=== PATIENT | female | born 1975 | race Hispanic/Latino ===

== ENCOUNTER 2021-07-28 00:21 | Emergency (ER) | payer OTHER ==
[2021-07-28] MEDS ORDERED: CHARCOAL/SORBITOL 50 GM/240 ML SUSP ONE (00:29)
[2021-07-28] MEDS ORDERED: PANTOPRAZOLE 40 MG/VIAL IVP ONE (00:30)
[2021-07-28 00:41] LABS: BASOPHILS % (AUTO) 0.9 % (0.0-5.0); HEMATOCRIT 41.7 % (36-48); LYMPHOCYTES % (AUTO) 38.9 % (21.0-51.0); MEAN CORPUSCULAR HEMOGLOBIN 34.1 pg (27.0-33.0); MEAN CORPUSCULAR HGB CONC 34.8 g/dL (32.0-36.0); MEAN CORPUSCULAR VOLUME 98.1 fL (79-99); MONOCYTES % (AUTO) 8.2 % (3.0-13.0); NEUTROPHILS % (AUTO) 48.6 % (40.0-77.0); PLATELET COUNT (AUTO) 340 K/uL (130-400); RED BLOOD CELL COUNT(AUTO) 4.25 MIL/uL (4.00-5.50); RED CELL DISTRIBUTION WIDTH 12.1 % (11.0-15.5); WHITE BLOOD COUNT (AUTO) 5.7 K/uL (4.8-10.8)
[2021-07-28 00:52] LABS: CREATININE 0.9 mg/dL (0.5-1.5)
[2021-07-28 00:56] LABS: ALBUMIN 3.4 g/dL (3.5-5.0); BILIRUBIN,TOTAL 0.2 mg/dL (0.2-1.0)
[2021-07-28 04:30] LABS: APPEARANCE,URINE Clear (CLEAR); COLOR,URINE Yellow (YELLOW); GLUCOSE, URINE (UA) Negative (NEGATIVE); KETONES,URINE Negative (NEGATIVE); LEUKOCYTE ESTERASE ,URINE Negative (NEGATIVE); NITRATE,URINE Negative (NEGATIVE); OCCULT BLOOD,URINE Trace (NEGATIVE); PH,URINE 5.5 (5.0-8.0); PROTEIN,URINE Negative (NEGATIVE); UROBILINOGEN,URINE 0.2 mg/dL (0.2-1.0)
[2021-07-28 04:34] LABS: HCG,QUAL RESULT NEGATIVE (NEGATIVE)
[2021-07-28 04:35] LABS: SALICYLATE 3.3 mg/dL (2.8-20.0)
[2021-07-28 04:36] LABS: ACETAMINOPHEN < 1 mcg/mL (10-30)
[2021-07-28 04:37] LABS: ALCOHOL, BLOOD 222 mg/dL (0-10)
[2021-07-28 05:00] LABS: BACTERIA,URINE None Seen /HPF (None Seen); RBC,URINE 0-1 /HPF (0-1); SQUAMOUS EPITHELIAL CELL,UR None Seen /HPF (0-2); WBC,URINE None Seen /HPF (0-1)
[2021-07-28] MEDS ORDERED: 0.9%NACL 1000ML 1,000 ML IV ONE ×2 (05:30→06:00)
[2021-07-28 05:41] LABS: AMPHET/METH SCREEN,URINE NEGATIVE (NEGATIVE); BARBITURATE SCREEN, URINE NEGATIVE (NEGATIVE); BENZODIAZEPINES SCREEN,URINE NEGATIVE (NEGATIVE); CANNABINOID SCREEN,URINE NEGATIVE (NEGATIVE); COCAINE SCREEN,URINE NEGATIVE (NEGATIVE); OPIATE SCREEN,URINE NEGATIVE (NEGATIVE); PHENCYCLIDINE SCREEN,URINE NEGATIVE (NEGATIVE)
[2021-07-28 06:08] LABS: BILIRUBIN,URINE NEGATIVE (NEGATIVE)
[2021-07-28 10:36] VITALS: BP 123/71
== END 2021-07-28 10:36 ==
LOC: EDH 00:21
DX: F19.10 Other psychoactive substance abuse, uncomplicated (principal); F10.10 Alcohol abuse, uncomplicated; R45.851 Suicidal ideations; Y90.7 Blood alcohol level of 200-239 mg/100 ml
CPT/HCPCS: 36415; 80053; 80305; 81001; 81002; 81025; 82550; 85025; 96361; 96374; 99283; C9113; G0481; J7030

== ENCOUNTER 2021-09-10 00:49 | Emergency (ER) | payer OTHER ==
[2021-09-10 01:15] VITALS: BP 109/67
[2021-09-10] MEDS ORDERED: HYDR25CA PO (01:44)
== END 2021-09-10 02:03 | disposition home or self-care (01) ==
LOC: EDH 00:49
DX: F10.10 Alcohol abuse, uncomplicated (principal); F41.9 Anxiety disorder, unspecified; F43.0 Acute stress reaction; F32.A Depression, unspecified; F43.10 Post-traumatic stress disorder, unspecified; Y90.9 Presence of alcohol in blood, level not specified